=== PATIENT | male | born 1945 | race Caucasian/White ===

== ENCOUNTER 2018-11-02 20:45 | Emergency (ER) | payer MEDICARE, BC ==
[~2018-11-02] VITALS: Ht 180.3 cm; Wt 83.9 kg
[~2018-11-02 20:45] MED LIST: BACTRIM DS TAB1 EAC1 ORAL; KEFLEX500 MG ORAL; NORCO 5-325 TA1 EACH ORAL
[2018-11-02] MEDS ORDERED: IBUPROFEN600 MG ORAL (22:11)
--- NOTE | 2018-11-02 22:12 | Emergency Room Report ---
History of Present Illness General Chief Complaint: Lower Extremity Injury Source: Patient Present Illness [facility] Follow-up your doctor in 7 days. Return if symptom worsen. 73-year-old male with no significant past medical history. He presents with chief complaint of right hip/thigh pain. Onset today. There was no trauma. This weekend he was working on the roof cleaning the gutter in was lying down on a possible range. He did not have any pain until today. After he was biking he noticed some swelling to the back of his hip near the buttock area. There was some swelling and then now bruising. Hurts to walk. Denies any fever chills denies any nausea vomiting. No direct trauma. No other complaint. Swelling went down. Allergies: Coded Allergies: No Known Allergies (Unverified , 05/04/14) Patient History Past Medical History: see triage record, old chart reviewed Past Surgical History: none Pertinent Family History: none Social History: Denies: smoking Immunizations: other Reviewed Nursing Documentation: PMH: Agreed; PSxH: Agreed Nursing Documentation-PMH Past Medical History: No History, Except For Hx Cardiac Problems: No - aortic aneurysm Review of Systems Eye: Denies: eye pain, blurred vision ENT: Denies: ear pain, nose congestion, throat swelling Respiratory: Denies: cough, shortness of breath Cardiovascular: Denies: chest pain, palpitations Gastrointestinal: Denies: abdominal pain, diarrhea, nausea, vomiting Musculoskeletal: Reports: muscle pain; Denies: back pain, joint pain Skin: Denies: rash Neurological: Denies: headache, numbness Endocrine: Denies: increased thirst, increased urine Hematologic/Lymphatic: Denies: easy bruising All Other Systems: negative except mentioned in HPI Physical Exam Vital Signs Date Time Temp Pulse Resp B/P (MAP) Pulse Ox O2 Delivery O2 Flow Rate FiO2 11/02/18 20:53 97.7 69 14 134/78 99 Room Air vitals normal Sp02 EP Interpretation: reviewed, normal General Appearance: well appearing, no apparent distress, alert Head: normocephalic, atraumatic Eyes: bilateral eye PERRL, bilateral eye EOMI ENT: hearing grossly normal, normal pharynx Neck: full range of motion, supple, no meningismus Respiratory: chest non-tender, lungs clear, normal breath sounds Cardiovascular #1: regular rate, rhythm, no murmur Gastrointestinal: normal bowel sounds, non tender, no mass, no organomegaly, no bruit, non-distended Musculoskeletal: back normal, gait/station normal, normal range of motion, other - Right hip/thigh: On the posterior aspect just distal to the gluteus, there is an area of ecchymosis. This measured about 6-7 cm. No warmth. He has full range of motion. Neurologic: oriented x3, responsive Psychiatric: mood/affect normal Skin: warm/dry Medical Decision Making Diagnostic Impression: Primary Impression: Hematoma of right lower extremity Qualified Codes: S80.11XA - Contusion of right lower leg, initial encounter ER Course Patient with a hematoma to his leg. No evidence of any fracture or dislocation. Notice any septic joint. No evidence of any abscess. This may be a broken blood vessel or a small muscle tear. X-rays negative. We'll discharge home. Patient is not on anticoagulate coagulation. He is not taking aspirin. Other X-Ray Diagnostic Results Other X-Ray Diagnostic Results : X-Ray ordered: X-ray right hip # of Views/Limited Vs Complete: 3 View Indication: Pain EP Interpretation: Yes Interpretation: no dislocation, no soft tissue swelling, no fractures Impression: No acute disease Electronically Signed by: Daniel Ramos MD Last Vital Signs Date Time Temp Pulse Resp B/P (MAP) Pulse Ox O2 Delivery O2 Flow Rate FiO2 11/02/18 20:53 97.7 69 14 134/78 99 Room Air Status: improved Disposition: HOME, SELF-CARE Condition: Stable Scripts Ibuprofen* (MOTRIN*) 600 Mg Tablet 600 MG ORAL THREE TIMES A DAY, #30 TAB 0 Refills Prov: Daniel Ramos MD 11/02/18 Additional Instructions: Ice pack to the area. Follow-up with your doctor in 7 days. If not better may need MRI. Return if worse. Daniel Ramos MD Nov 02, 2018 22:12
[2018-11-02 22:19] VITALS: BP 134/78
--- NOTE | 2018-11-03 09:41 | Diagnostic Imaging Report ---
Indication: Trauma, pain Technique: 2 views of the right hip Comparison: none Findings: No acute fractures. No dislocations. The joint spaces are preserved Impression: Negative Note, however, that in elderly osteoporotic patients, nondisplaced hip or pelvic fractures can easily be occult. Consider cross-sectional imaging or bone scan if there is high clinical suspicion
== END 2018-11-02 22:22 | disposition home or self-care (01) ==
LOC: EMR 22:21
DX: S80.01XA Contusion of right knee, initial encounter (principal); X50.9XXA Other and unspecified overexertion or strenuous movements or postures, initial encounter; Y92.009 Unspecified place in unspecified non-institutional (private) residence as the place of occurrence of the external cause
CPT/HCPCS: 99283